=== PATIENT | female | born 1985 | race Caucasian/White ===

== ENCOUNTER 2019-10-29 20:07 | Emergency (ER) | payer OTHER ==
[2019-10-29 20:28] VITALS: BP 138/88; PULSE 92; TEMP 98.4; BMI 40.7
--- NOTE | 2019-10-29 21:17 | PDOC ---
History of Present Illness - General Chief Complaint: Cold Symptoms Stated Complaint: SOB/COUGH Time Seen by Provider: 10/29/19 21:03 History Source: Patient - History of Present Illness Initial Comments: 10/29/19 21:20 33-year-old female complaining of cough and posttussive vomiting for the last 3 to 4 days. Patient reports that she has a history of asthma/RAD and has been using a nebulizer at home with no significant improvement in symptoms. Denies fever/chills, abdominal pain Past medical history of multiple bariatric surgeries, per GERD Past History - Past Medical History Allergies/Adverse Reactions: Allergies Allergy/AdvReac Type Severity Reaction Status Date / Time Penicillins Allergy Intermediate Hives Verified 10/29/19 20:24 seasonal Allergy Intermediate Uncoded 10/29/19 20:24 Home Medications: Ambulatory Orders Etonogestrel/Ethinyl Estradiol [Nuvaring Vaginal Ring] 1 each VG DAILY 07/10/13 Multivitamin [Multi-Day Vitamins] 1 tab PO DAILY 10/11/13 Hydrocodone Bit/Acetaminophen [Vicodin 5-500mg Tablet -] 1 tab PO Q6H #30 tablet 10/15/13 Albuterol 0.083% Nebulizer Ursula [Ventolin 0.083% Nebulizer Soln -] 1 neb NEB Q6H PRN #25 vial 10/29/19 Benzonatate [Tessalon Pearls -] 100 mg PO TID PRN #21 capsule 10/29/19 Famotidine [Pepcid] 40 mg PO DAILY #20 tablet 10/29/19 predniSONE [Deltasone -] 40 mg PO UTDICT #8 tablet 10/29/19 Anemia: Yes Asthma: No Cancer: No Cardiac Disorders: No CVA: No COPD: No CHF: No Dementia: No Diabetes: (Insulin resistance) GI Disorders: Yes (GERD) Disorders: Yes (PCOS) HTN: No Hypercholesterolemia: No Liver Disease: No Seizures: No Thyroid Disease: No - Surgical History Abdominal Surgery: Yes (LAP BAND 03/2012) Appendectomy: No Cardiac Surgery: No Cholecystectomy: No Lung Surgery: No Neurologic Surgery: No Orthopedic Surgery: No - Immunization History Immunization Up to Date: Yes - Psycho Social/Smoking Cessation Hx Smoking Status: No Smoking History: Never smoked Have you smoked in the past 12 months: No Number of Cigarettes Smoked Daily: 0 Information on smoking cessation initiated: No Hx Alcohol Use: No Drug/Substance Use Hx: No Substance Use Type: None Hx Substance Use Treatment: No Review of Systems - Review of Systems Able to Perform ROS?: Yes Is the patient limited Algerian proficient: No Constitutional: No: Symptoms Reported, See HPI, Chills, Diaphoresis, Fever, Loss of Appetite, Malaise, Night Sweats, Weakness, Weight Stable, Unintentional Wgt. Loss, Unexplained wgt Loss, Other Respiratory: Yes: Cough ABD/GI: Yes: Vomiting *Physical Exam - Vital Signs Last Vital Signs Temp Pulse Resp BP Pulse Ox 98.4 F 92 H 17 138/88 99 10/29/19 20:24 10/29/19 20:24 10/29/19 20:24 10/29/19 20:24 10/29/19 20:24 - Physical Exam General Appearance: Yes: Appropriately Dressed Respiratory/Chest: positive: Lungs Clear, Normal Breath Sounds, Other (dry cough ) Gastrointestinal/Abdominal: positive: Normal Bowel Sounds, Soft. negative: Tender Integumentary: positive: Normal Color, Dry, Warm Neurologic: positive: Fully Oriented, Alert Medical Decision Making - Medical Decision Making A: RAD; gerd P: duoneb prednisone famotidine Discharge - Discharge Information Problems reviewed: Yes Clinical Impression/Diagnosis: Reactive airway disease Qualifiers: Asthma severity: mild Asthma persistence: intermittent Asthma complication type : uncomplicated Qualified Code(s): J45.20 - Mild intermittent asthma, uncomplicated GERD (gastroesophageal reflux disease) Qualifiers: Esophagitis presence: esophagitis presence not specified Qualified Code(s): K21.9 - Gastro-esophageal reflux disease without esophagitis Condition: Improved Disposition: HOME - Additional Discharge Information Prescriptions: Albuterol 0.083% Nebulizer Ursula [Ventolin 0.083% Nebulizer Soln -] 1 neb NEB Q6H PRN #25 vial PRN Reason: Cough Benzonatate [Tessalon Pearls -] 100 mg PO TID PRN #21 capsule PRN Reason: Cough Famotidine [Pepcid] 40 mg PO DAILY #20 tablet predniSONE [Deltasone -] 40 mg PO UTDICT #8 tablet - Follow up/Referral - Patient Discharge Instructions Patient Printed Discharge Instructions: DI for Reactive Airway Disease-Adult Additional Instructions: drink plenty of fluids take prednisone as precribed take pepcid as prescribed foillow up with your doctor as soon as possible. return to the ER for any worsening symptoms. - Post Discharge Activity Work/Back to School Note: Back to Work
[2019-10-29] MEDS ORDERED: ALBUTEROL SO4 0.083% IH SOL 2.5 MG/3 ML VIAL.NEB. NEB ONE (21:18)
[2019-10-29] MEDS ORDERED: predniSONE 20 MG TABLET (UD) PO ONE (21:18)
[2019-10-29] MEDS ORDERED: FAMOTIDINE 20 MG TABLET PO ONE (21:31)
[2019-10-29] MEDS ORDERED: predniSONE 20 MG TABLET (UD) ONE (21:37)
[2019-10-29] MEDS ORDERED: FAMOTIDINE 20 MG TABLET ONE (21:52)
== END 2019-10-29 23:07 | disposition home or self-care (01) ==
LOC: JERFT 20:07
PROC: 3E0F7GC Introduction of Other Therapeutic Substance into Respiratory Tract, Via Natural or Artificial Opening (ICD-10-PCS; principal; 2019-10-29)
DX: J45.20 Mild intermittent asthma, uncomplicated (principal); K21.9 Gastro-esophageal reflux disease without esophagitis; D64.9 Anemia, unspecified; E28.2 Polycystic ovarian syndrome; Z98.84 Bariatric surgery status; E11.9 Type 2 diabetes mellitus without complications; Z88.0 Allergy status to penicillin; Z91.048 Other nonmedicinal substance allergy status
CPT/HCPCS: 99281-25